=== PATIENT | male | born 1970 | race Caucasian/White ===

== ENCOUNTER 2024-11-01 14:11 | Inpatient (IN) | payer OTHER ==
[~2024-11-01] VITALS: Ht 170.1 cm; Wt 54.4 kg
[2024-11-01 14:33] LABS: ABG O2 SATURATION 60.1 % (94.0-98.0); ARTERIAL BLOOD GAS PH 7.421 (7.350-7.450)
[2024-11-01 14:35] LABS: ABG BASE EXCESS 7.5 mmol/L (-2.0-3.0)
[2024-11-01 14:36] LABS: ARTERIAL BLOOD GAS PO2 32.9 mmHg (83.0-108.0)
[2024-11-01 14:49] LABS: BASO % 0.1 % (0.0-1.0); MEAN CELL VOLUME 85.9 fl (81.0-99.0); MEAN CORPUSCULAR HGB 24.8 pg (27.0-31.0); MEAN CORPUSCULAR HGB CONC 28.9 g/dl (33.0-37.0); MONO # 0.4 10*3/uL (0.1-1.0); NEUT # 6.2 10*3/uL (2.3-7.9); NEUT % 87.4 % (47.0-73.0); PLATELET COUNT AUTOMATED 263 10*3/uL (130-400); RED BLOOD COUNT 3.26 10*6/uL (4.10-5.10); RED CELL DISTRI WIDTH 17.7 % (0-14.5); WHITE BLOOD COUNT 7.1 10*3/uL (4.8-10.8)
[2024-11-01 15:11] LABS: BUN 27 mg/dl (9-23); CHLORIDE 91 mmol/L (98-107); POTASSIUM 3.3 mmol/L (3.4-5.1)
[2024-11-01] MEDS ORDERED: SODIUM CHLORIDE 0.9% 1,000 ML IV ONE (15:20)
[2024-11-01] MEDS ORDERED: POTASSIUM CHLORIDE 20 MEQ TAB PO ONE (15:25)
[2024-11-01 17:10] VITALS: BP 109/58
[2024-11-01] MEDS ORDERED: AZITHROMYCIN 250 ML IV ONE (18:20)
[2024-11-01] MEDS ORDERED: cefTRIAXone Sodium 1 GM/10 ML SYR IV ONE ×2 (18:20→19:50)
[2024-11-01 18:26] VITALS: BP 105/62
[2024-11-01 19:47] VITALS: BP 97/58
[2024-11-01] MEDS ORDERED: TEMAZEPAM 15 MG CAP PO PRN (20:10)
[2024-11-01] MEDS ORDERED: ACETAMINOPHEN 650 MG SUPP R PRN (20:10)
[2024-11-01] MEDS ORDERED: BISACODYL 5 MG TAB PO PRN (20:10)
[2024-11-01] MEDS ORDERED: Magnesium Hydroxide 30 ML UDC PO PRN (20:10)
[2024-11-01] MEDS ORDERED: Ondansetron Hydrochloride 4 MG/2 ML VIAL IV PRN (20:10)
[2024-11-01] MEDS ORDERED: BISACODYL 10 MG SUPP R PRN (20:10)
[2024-11-01] MEDS ORDERED: ACETAMINOPHEN 325 MG TAB PO PRN (20:10)
[2024-11-01] MEDS ORDERED: Albuterol Sulf/Ipratropium 3 ML VIAL NEB SCH (21:05)
[2024-11-01] MEDS ORDERED: MORPHINE SULFA100 MG PO (21:36)
[2024-11-01] MEDS ORDERED: FUROSEMIDE20 M1 PO (21:36)
[2024-11-01] MEDS ORDERED: SERTRALINE HYDR50 MG PO (21:36)
[2024-11-01] MEDS ORDERED: TIZANIDINE2 MG PO (21:36)
[2024-11-01] MEDS ORDERED: Vancomycin Hydrochloride 1,000 MG in SODIUM CHLORIDE 0.9% 250 ML IV SCH (22:00)
[2024-11-01 23:00] VITALS: BP 106/63
[2024-11-02] MEDS ORDERED: Piperacillin Sodium/Tazobact 50 ML IV SCH
[2024-11-02 00:10] VITALS: BP 109/65
[2024-11-02 06:10] LABS: BASO % 0.2 % (0.0-1.0); EOS % 0.2 % (1.0-4.0); MEAN CELL VOLUME 86.5 fl (80.0-94.0); MEAN CORPUSCULAR HGB CONC 28.9 g/dl (33.0-37.0); MEAN PLATELET VOLUME 8.4 fl (9.6-12.3); MONO # 0.3 10*3/uL (0.1-1.0); MONO % 5.6 % (3.0-9.0); NEUT # 5.1 10*3/uL (2.3-7.9); NEUT % 86.8 % (47.0-73.0); PLATELET COUNT AUTOMATED 255 10*3/uL (130-400); RED BLOOD COUNT 3.12 10*6/uL (4.50-5.90); RED CELL DISTRI WIDTH 17.6 % (0-14.5); WHITE BLOOD COUNT 5.9 10*3/uL (4.8-10.8)
[2024-11-02 06:26] LABS: ACT PARTIAL THROMBO TIME 38.4 SECONDS (20.0-32.1)
[2024-11-02 06:45] LABS: ALKALINE PHOSPHATASE 139 U/L (46-116); CHLORIDE 94 mmol/L (98-107); CHOLESTEROL 80 mg/dL (<200); FREE T4 1.02 ng/dl (0.89-1.76); POTASSIUM 2.8 mmol/L (3.4-5.1); SGPT/ALT 17 U/L (5-49); TOTAL PROTEIN 6.5 gm/dL (6.0-8.0); TRIGLYCERIDES 107 mg/dl (<150)
[2024-11-02 06:55] LABS: BUN 16 mg/dl (9-23); LDL CHOLESTEROL 41 mg/dL (9-159)
[2024-11-02 08:00] VITALS: BP 103/55
[2024-11-02 09:21] LABS: ABG O2 SATURATION 99.5 % (94.0-98.0); ARTERIAL BLOOD GAS PH 7.537 (7.350-7.450); ARTERIAL BLOOD GAS PO2 149.8 mmHg (83.0-108.0)
[2024-11-02 09:22] LABS: ABG BASE EXCESS 8.8 mmol/L (-2.0-3.0)
[2024-11-02] MEDS ORDERED: Sertraline Hydrochloride 50 MG TAB PO SCH (10:00)
[2024-11-02] MEDS ORDERED: Enoxaparin Sodium 40 MG/0.4 ML SYR SC SCH (10:00)
[2024-11-02] MEDS ORDERED: FUROSEMIDE 20 MG TAB PO SCH (10:00)
[2024-11-02] MEDS ORDERED: tiZANidine Hydrochloride 2 MG TAB PO SCH (10:00)
[2024-11-02] MEDS ORDERED: MORPHINE SULFATE 100 MG PO SCH (10:00)
[2024-11-02] MEDS ORDERED: LEVOTHYROXINE125 MCG PO (14:20)
[2024-11-02] MEDS ORDERED: PANTOPRAZOLE SO40 MG PO (14:21)
[2024-11-02] MEDS ORDERED: OXYCODONE HYDRO30 MG PO (14:22)
[2024-11-02] MEDS ORDERED: OXYCODONE HCL (IR) 10 MG TABLET PO PRN (14:30)
[2024-11-02] MEDS ORDERED: FOAM BANDAGE HEEL T ONE (14:59)
[2024-11-02] MEDS ORDERED: FOAM BANDAGE 1 EACH BANDAGE T ONE (14:59)
[2024-11-02] MEDS ORDERED: POTASSIUM CHLORIDE 20 MEQ TAB PO ONE (15:15)
[2024-11-02] MEDS ORDERED: HEEL PROTECTOR DEVICE ONE (15:24)
[2024-11-02] MEDS ORDERED: CHAIR CUSHION DEVICE ONE (15:24)
[2024-11-02 16:00] VITALS: BP 90/49
[2024-11-02] MEDS ORDERED: SODIUM CHLORIDE 0.9% 500 ML IV ONE (16:45)
[2024-11-02] MEDS ORDERED: FUROSEMIDE 20 MG TAB PO PRN (16:54)
[2024-11-02] MEDS ORDERED: LEPTOSPERMUM HONEY 0.5 OZ TUBE T ONE (17:56)
[2024-11-02] MEDS ORDERED: FOAM BANDAGE 5X5 T ONE (17:56)
[2024-11-02 18:42] VITALS: BP 107/61
[2024-11-02 20:00] VITALS: BP 99/57
[2024-11-02] MEDS ORDERED: Ketorolac Tromethamine 15 MG/ML VIAL IV ONE (20:40)
[2024-11-02] MEDS ORDERED: AMMONIUM LACTATE 12% LOTION T SCH (22:00)
[2024-11-03] VITALS: BP 107/61
[2024-11-03 04:00] VITALS: BP 103/61
[2024-11-03] MEDS ORDERED: Pantoprazole Sodium 40 MG TAB PO SCH (06:00)
[2024-11-03] MEDS ORDERED: Levothyroxine Sodium 125 MCG TAB PO SCH (06:00)
[2024-11-03 06:18] LABS: EOS # 0.1 10*3/uL (0.0-0.4); EOS % 1.4 % (1.0-4.0); HEMATOCRIT 28.5 % (42.0-52.0); MEAN CORPUSCULAR HGB 24.7 pg (27.0-31.0); MEAN CORPUSCULAR HGB CONC 28.1 g/dl (33.0-37.0); MEAN PLATELET VOLUME 8.4 fl (9.6-12.3); MONO # 0.2 10*3/uL (0.1-1.0); MONO % 5.5 % (3.0-9.0); NEUT # 3.4 10*3/uL (2.3-7.9); PLATELET COUNT AUTOMATED 237 10*3/uL (130-400); RED BLOOD COUNT 3.24 10*6/uL (4.50-5.90); RED CELL DISTRI WIDTH 17.4 % (0-14.5); WHITE BLOOD COUNT 4.2 10*3/uL (4.8-10.8)
[2024-11-03 06:23] LABS: BUN 13 mg/dl (9-23); CHLORIDE 101 mmol/L (98-107); POTASSIUM 3.1 mmol/L (3.4-5.1)
[2024-11-03] MEDS ORDERED: POTASSIUM CHLORIDE 20 MEQ TAB PO ONE (07:30)
[2024-11-03 08:00] VITALS: BP 100/60
[2024-11-03 11:54] VITALS: BP 107/53
[2024-11-03 16:00] VITALS: BP 95/51
[2024-11-03] MEDS ORDERED: tiZANidine Hydrochloride 2 MG TAB PO ONE (18:40)
[2024-11-03 20:00] VITALS: BP 111/64
[2024-11-04] VITALS: BP 110/60
[2024-11-04 04:00] VITALS: BP 110/63
[2024-11-04 07:01] LABS: BASO % 0.2 % (0.0-1.0); EOS # 0.1 10*3/uL (0.0-0.4); EOS % 1.1 % (1.0-4.0); HEMATOCRIT 29.8 % (42.0-52.0); MEAN CELL VOLUME 86.9 fl (80.0-94.0); MEAN CORPUSCULAR HGB 25.1 pg (27.0-31.0); MEAN CORPUSCULAR HGB CONC 28.9 g/dl (33.0-37.0); MONO # 0.5 10*3/uL (0.1-1.0); MONO % 8.4 % (3.0-9.0); NEUT # 4.4 10*3/uL (2.3-7.9); NEUT % 80.6 % (47.0-73.0); PLATELET COUNT AUTOMATED 243 10*3/uL (130-400); RED BLOOD COUNT 3.43 10*6/uL (4.50-5.90); RED CELL DISTRI WIDTH 17.6 % (0-14.5); WHITE BLOOD COUNT 5.5 10*3/uL (4.8-10.8)
[2024-11-04 07:25] LABS: BUN 7 mg/dl (9-23); CHLORIDE 99 mmol/L (98-107); POTASSIUM 3.3 mmol/L (3.4-5.1)
[2024-11-04 08:00] VITALS: BP 105/62
[2024-11-04] MEDS ORDERED: POTASSIUM CHLORIDE 20 MEQ TAB PO ONE (08:10)
[2024-11-04 12:00] VITALS: BP 97/55
[2024-11-04 16:00] VITALS: BP 107/62
[2024-11-04 20:00] VITALS: BP 114/65
[2024-11-05] VITALS: BP 120/60
[2024-11-05] MEDS ORDERED: VANCOMYCIN/WATER FOR INJ (PEG) 150 ML IV SCH (02:00)
[2024-11-05 06:56] LABS: BUN 6 mg/dl (9-23); CHLORIDE 97 mmol/L (98-107); POTASSIUM 3.5 mmol/L (3.4-5.1)
[2024-11-05 09:00] VITALS: BP 107/63
[2024-11-05 12:00] VITALS: BP 109/68
[2024-11-05 16:00] VITALS: BP 97/59
[2024-11-05 20:00] VITALS: BP 120/57
[2024-11-06] VITALS: BP 118/61
[2024-11-06 06:30] LABS: BASO % 0.2 % (0.0-1.0); EOS # 0.1 10*3/uL (0.0-0.4); EOS % 0.8 % (1.0-4.0); MEAN CORPUSCULAR HGB 24.4 pg (27.0-31.0); MEAN CORPUSCULAR HGB CONC 28.3 g/dl (33.0-37.0); MEAN PLATELET VOLUME 8.6 fl (9.6-12.3); MONO # 0.5 10*3/uL (0.1-1.0); MONO % 8.1 % (3.0-9.0); NEUT # 5.5 10*3/uL (2.3-7.9); NEUT % 82.7 % (47.0-73.0); PLATELET COUNT AUTOMATED 267 10*3/uL (130-400); RED BLOOD COUNT 3.49 10*6/uL (4.50-5.90); RED CELL DISTRI WIDTH 17.8 % (0-14.5); WHITE BLOOD COUNT 6.6 10*3/uL (4.8-10.8)
[2024-11-06 07:00] LABS: BUN 8 mg/dl (9-23); CHLORIDE 98 mmol/L (98-107); POTASSIUM 3.5 mmol/L (3.4-5.1)
[2024-11-06 08:20] VITALS: BP 112/63
[2024-11-06] MEDS ORDERED: FOAM BANDAGE 5X5 T ONE (08:25)
[2024-11-06] MEDS ORDERED: LEPTOSPERMUM HONEY 0.5 OZ TUBE T ONE (08:31)
[2024-11-06 11:45] VITALS: BP 113/67
[2024-11-06] MEDS ORDERED: HEPARIN SODIUM 500 UNIT/5 ML SYR IV ONE (13:50)
[2024-11-06 16:00] VITALS: BP 100/65
[2024-11-06 21:00] VITALS: BP 103/57
[2024-11-07] VITALS: BP 100/53
[2024-11-07 06:17] LABS: BUN 10 mg/dl (9-23); CHLORIDE 98 mmol/L (98-107); POTASSIUM 3.5 mmol/L (3.4-5.1)
[2024-11-07 06:26] LABS: BASO % 0.2 % (0.0-1.0); EOS # 0.1 10*3/uL (0.0-0.4); HEMATOCRIT 29.7 % (42.0-52.0); MEAN CELL VOLUME 85.1 fl (80.0-94.0); MEAN CORPUSCULAR HGB 25.2 pg (27.0-31.0); MEAN CORPUSCULAR HGB CONC 29.6 g/dl (33.0-37.0); MEAN PLATELET VOLUME 8.6 fl (9.6-12.3); MONO # 0.5 10*3/uL (0.1-1.0); MONO % 8.6 % (3.0-9.0); NEUT # 4.8 10*3/uL (2.3-7.9); NEUT % 80.1 % (47.0-73.0); PLATELET COUNT AUTOMATED 328 10*3/uL (130-400); RED BLOOD COUNT 3.49 10*6/uL (4.50-5.90); RED CELL DISTRI WIDTH 17.9 % (0-14.5)
[2024-11-07 08:00] VITALS: BP 123/66
[2024-11-07] MEDS ORDERED: FOAM BANDAGE 1 EACH BANDAGE T ONE (09:37)
[2024-11-07 11:53] VITALS: BP 97/54
[2024-11-07] MEDS ORDERED: FOAM BANDAGE HEEL T ONE (14:13)
[2024-11-07 16:00] VITALS: BP 103/54
[2024-11-07 20:00] VITALS: BP 92/54
[2024-11-08] VITALS: BP 127/71
[2024-11-08 07:17] LABS: BASO % 0.2 % (0.0-1.0); EOS # 0.1 10*3/uL (0.0-0.4); EOS % 0.8 % (1.0-4.0); HEMATOCRIT 31.9 % (42.0-52.0); MEAN CORPUSCULAR HGB 24.8 pg (27.0-31.0); MEAN CORPUSCULAR HGB CONC 28.8 g/dl (33.0-37.0); MEAN PLATELET VOLUME 9.7 fl (9.6-12.3); MONO # 0.8 10*3/uL (0.1-1.0); MONO % 8.9 % (3.0-9.0); NEUT % 84.2 % (47.0-73.0); PLATELET COUNT AUTOMATED 373 10*3/uL (130-400); RED BLOOD COUNT 3.71 10*6/uL (4.50-5.90); RED CELL DISTRI WIDTH 17.9 % (0-14.5); WHITE BLOOD COUNT 9.5 10*3/uL (4.8-10.8)
[2024-11-08 07:55] LABS: BUN 9 mg/dl (9-23); CHLORIDE 95 mmol/L (98-107); POTASSIUM 4.1 mmol/L (3.4-5.1)
[2024-11-08 08:00] VITALS: BP 110/61
[2024-11-08] MEDS ORDERED: LINEZOLID 600 MG TAB PEG SCH (10:25)
[2024-11-08 11:29] VITALS: BP 90/62
[2024-11-08] MEDS ORDERED: LINEZOLID600 MG PEG (12:07)
[2024-11-08 14:06] LABS: BUN 12 mg/dl (9-23); CHLORIDE 95 mmol/L (98-107); POTASSIUM 4.4 mmol/L (3.4-5.1)
[2024-11-08] MEDS ORDERED: FOAM BANDAGE 5X5 T ONE (15:26)
[2024-11-08] MEDS ORDERED: FOAM BANDAGE HEEL T ONE (15:26)
[2024-11-08] MEDS ORDERED: FOAM BANDAGE 1 EACH BANDAGE T ONE (15:26)
[2024-11-08 16:00] VITALS: BP 130/70
[2024-11-08 20:00] VITALS: BP 110/62
[2024-11-09] VITALS: BP 109/58
[2024-11-09 05:10] LABS: BUN 12 mg/dl (9-23); CHLORIDE 94 mmol/L (98-107); POTASSIUM 3.7 mmol/L (3.4-5.1)
[2024-11-09 06:05] LABS: BASO % 0.1 % (0.0-1.0); EOS # 0.1 10*3/uL (0.0-0.4); EOS % 0.8 % (1.0-4.0); HEMATOCRIT 29.3 % (42.0-52.0); MEAN CELL VOLUME 83.2 fl (80.0-94.0); MEAN CORPUSCULAR HGB 24.4 pg (27.0-31.0); MEAN CORPUSCULAR HGB CONC 29.4 g/dl (33.0-37.0); MEAN PLATELET VOLUME 8.6 fl (9.6-12.3); MONO # 0.7 10*3/uL (0.1-1.0); MONO % 8.9 % (3.0-9.0); NEUT # 6.5 10*3/uL (2.3-7.9); PLATELET COUNT AUTOMATED 370 10*3/uL (130-400); RED BLOOD COUNT 3.52 10*6/uL (4.50-5.90); RED CELL DISTRI WIDTH 18.2 % (0-14.5)
[2024-11-09 08:00] VITALS: BP 104/59
[2024-11-09 12:00] VITALS: BP 94/60
[2024-11-09] MEDS ORDERED: MORPHINE SULFA100 MG PO (13:58)
[2024-11-09] MEDS ORDERED: OXYCODONE HYDRO30 MG PO (13:58)
== END 2024-11-09 13:45 | DRG 133 ==
LOC: ED 14:11 → EDHOLD 18:21 → EDSEX 18:21 → 5E 18:21
PROVIDERS: Internal Medicine; Student in an Organized Health Care Education/Training Program; ADMIT Family Medicine; ATTEND Family Medicine
PROC: 5A1935Z Respiratory Ventilation, Less than 24 Consecutive Hours (ICD-10-PCS; 2024-11-01)
PROC: 5A0935A Assistance with Respiratory Ventilation, Less than 24 Consecutive Hours, High Flow/Velocity Cannula (ICD-10-PCS; principal; 2024-11-02)
PROC: 0HBRXZZ Excision of Toe Nail, External Approach (ICD-10-PCS; 2024-11-02)
PROC: 0HBRXZZ Excision of Toe Nail, External Approach (ICD-10-PCS; 2024-11-02)
PROC: 0HBRXZZ Excision of Toe Nail, External Approach (ICD-10-PCS; 2024-11-02)
PROC: 0HBRXZZ Excision of Toe Nail, External Approach (ICD-10-PCS; 2024-11-02)
PROC: 0HBRXZZ Excision of Toe Nail, External Approach (ICD-10-PCS; 2024-11-02)
PROC: 0HBRXZZ Excision of Toe Nail, External Approach (ICD-10-PCS; 2024-11-02)
PROC: 0HBRXZZ Excision of Toe Nail, External Approach (ICD-10-PCS; 2024-11-02)
PROC: 0HBRXZZ Excision of Toe Nail, External Approach (ICD-10-PCS; 2024-11-02)
PROC: 0HBRXZZ Excision of Toe Nail, External Approach (ICD-10-PCS; 2024-11-02)
PROC: 0HBRXZZ Excision of Toe Nail, External Approach (ICD-10-PCS; 2024-11-02)
DX: J96.01 Acute respiratory failure with hypoxia (principal); J69.0 Pneumonitis due to inhalation of food and vomit; J15.212 Pneumonia due to Methicillin resistant Staphylococcus aureus; L89.893 Pressure ulcer of other site, stage 3; E43 Unspecified severe protein-calorie malnutrition; E87.1 Hypo-osmolality and hyponatremia; J93.9 Pneumothorax, unspecified; R13.12 Dysphagia, oropharyngeal phase; R62.7 Adult failure to thrive; J98.09 Other diseases of bronchus, not elsewhere classified; E87.6 Hypokalemia; F41.9 Anxiety disorder, unspecified; B35.1 Tinea unguium; J98.11 Atelectasis; J44.0 Chronic obstructive pulmonary disease with (acute) lower respiratory infection; D64.9 Anemia, unspecified; G89.3 Neoplasm related pain (acute) (chronic); E03.9 Hypothyroidism, unspecified; Z93.0 Tracheostomy status; Z86.16 Personal history of COVID-19; Z85.118 Personal history of other malignant neoplasm of bronchus and lung; Z87.891 Personal history of nicotine dependence; Z83.3 Family history of diabetes mellitus; Z68.1 Body mass index [BMI] 19.9 or less, adult